=== PATIENT | female | born 1975 | race Hispanic/Latino ===

== ENCOUNTER → 2019-11-29 | Day surgery (SDC) | payer OTHER ==
[~2019-11-29] MED LIST: CEFAZOLIN/SWI 1gm 1 GM/10 ML SYR ONE; CODEINE 30MG/APAP 300MG TAB ONE; CODEINE 30MG/APAP 300MG TAB PO ONE; FENTANYL CITR 100 MCG/2 ML ONE; GLYCOPYRROLATE 0.2 MG/ML SYR ONE; LIDOCAINE 1% W/EPI 1:100,000 MDV 20 ML VIAL ONE; LIDOCAINE 2% MPF 5 ML VIAL ONE; LIDOCAINE JELLY 2%- 5 ML TUBE ONE; MIDAZOLAM HCL 2 MG/2 ML INJ ONE; Mastisol Adhesive Liq ONE; NEOSTIGMINE 1 MG/ML -5 ML ONE; ONDANSETRON 4 MG/2 ML VIAL ONE; OXYMETAZOLINE HCL 0.05% 15ML NAS ONE; ROCURONIUM 50 MG/5 ML VIAL IV ONE; Ringers Lactate 1,000 ML IV ONE; propofoL 200 MG/20 ML VIAL IV ONE
[2019-11-29 10:40] VITALS: O2SAT 100
[2019-11-29] MEDS: MORPHINE 4 MG/ML SYR ONE ×4 (10:50→11:14)
[2019-11-29 12:16] VITALS: BP 135/63; TEMP 97
--- OUTSIDE RECORDS SUMMARY | 2019-11-29 13:25 | XMS REPORT ---
:1975 Author Care Team Providers Name Role Phone YUDELKA CRESPO MD Primary Care Provider [phone] Allergies Code Code System Name Reaction Severity Status Onset NKDA Medications No Medications Reported Notes: No medications reported by patient on 01/30/2018 Problems No Known Problems Procedures Date Name Performed by 11/07/2009 Breast Surgery Information not available Notes: implants 11/07/1996 Tubal Ligation Information not available Lab Results Date Name Specimen Result Interpretation Description Value Range Status Address Urinalysis, Color Color yellow [facility] [place]: [address], [place] Color clear [facility] [place] [place]: [address], [place] Color Glucose negative [facility]: [address], [place] Color Bilirubin negative [facility]: [address] [place] Color Ketones negative [facility]: [address] [place] Color Specific 1.010 [facility] [place]: [address] [place] Color Blood negative [facility]: [address], [place] Color PH 6.5 [facility]: [address], [place] Color Protein negative [facility]: [address], [place] Color 0.2 [facility] [place]: [address], [place] Color Nitrites negative [facility]: [address], [place] Color negative [facility]: [address], [place] Past Encounters 01/30/2018 Adult Health Examination; Screening for Malignant Neoplasm of Cervix; Vitamin D Deficiency Yudelka Crespo MD: [address], [address], [place] [address], Ph. Social History Smoking Status Never Smoker Vaccine List Vaccine Type influenza, injectable, quadrivalent 08/16/2017 Tdap 08/16/2017 Plan of Care Reminders Provider Appointments None recorded. Lab None recorded. Referral None recorded. Procedures None recorded. Surgeries None recorded. Imaging None recorded. Vitals Height Weight BMI Blood Pressure 5 ft 1 in 136 lbs 25.7 kg/m2 114/58 mm[Hg]
--- OUTSIDE RECORDS SUMMARY | 2019-11-29 13:25 | XMS REPORT | Encounter Summary ---
:1975 Author Care Team Providers Name Role Phone Dr. Yudelka Logan Primary Care Provider [phone] Yudelka Logan MD Primary Care Provider [phone] Reason for Visit Annual physical - female Instructions 1. Adult health examination CBC w/ auto diff CMP, serum or plasma TSH, serum or plasma lipid panel, serum urinalysis, dipstick 2. Vitamin D deficiency vitamin D, 25-hydroxy, total, serum 3. Anemia iron + TIBC + ferritin, serum 4. Influenza vaccination given Fluzone Quad (PF) 60 mcg (15 mcg x 4)/0.5 mL IM syringe 5. Screening for malignant neoplasm of breast MAMMO, screening, digital, bilateral Discussion Note: None recorded.Patient educational handouts: No information available. Plan of Care Reminders Provider Appointments None recorded. Lab CBC W/ Auto [facility] Diff 07/25/2019 Practice Laboratory CMP, Serum or [facility] Plasma 07/25/2019 Practice Laboratory TSH, Serum or [facility] Plasma 07/25/2019 Practice Laboratory Lipid Panel, [facility] Serum 07/25/2019 Practice Laboratory Vitamin D, [facility] 25-Hydroxy, Total, 07/25/2019 Practice Laboratory Serum Iron + TIBC + [facility] Ferritin, Serum 07/25/2019 Practice Laboratory Urinalysis, [facility] Dipstick 07/25/2019 Referral None recorded. Procedures None recorded. Surgeries None recorded. Imaging MAMMO, [facility] Breast Screening, Digital, 07/25/2019 Center Scheduling Bilateral Medications No Medications Reported Medications Administered None recorded. Vitals Height Weight BMI Blood Pressure 5 ft 1 in 138 lbs 26.1 kg/m2 108/78 mm[Hg] Lab Results Date Name Specimen Result Interpretation Description Value Range Status Address Urinalysis, Color Color yellow [facility] [place]: [address], [place] Color clear [facility] [place]: [address], [place] Color Glucose negative [facility]: [address], [place] Color Bilirubin negative [facility]: [address], [place] Color Ketones trace [facility]: [address] [facility] [address], [place] Color Specific 1.025 [facility] [place]: [address] [facility] [address], [place] Color Blood negative [facility]: [address] [facility] [address], [place] Color PH 6.0 [facility]: [address] [facility] [address], [place] Color Protein negative [facility]: [address] [facility] [address], [place] Color 0.2 [facility] [place]: [address] [facility] [address], [place] Color Nitrites negative [facility]: [address] [facility] [address], [place] Color negative [facility] [place]: [address] [facility] [address], [place] Allergies Code Code System Name Reaction Severity Status Onset NKDA Problems Name Status Onset Date Source Vitamin D Deficiency Active 01/31/2018 Anemia Active 01/31/2018 Procedures Date Name Performed by 11/07/2009 Breast Surgery Information not available 11/07/1996 Tubal Ligation Information not available 07/25/2019 MAMMO, Screening, Digital, [facility] Scheduling Bilateral [address] [place] [address] (Work Place) Vaccine List Vaccine Type influenza, injectable, quadrivalent 08/16/2017 influenza, injectable, quadrivalent, preservative free 08/03/20180.5 mL Tdap 08/16/2017 Social History Tobacco Smoking Status Never Smoker Past Encounters 07/25/2019 Adult Health Examination; Vitamin D Deficiency; Anemia; Influenza Vaccination Given; Screening for Malignant Neoplasm of Breast Yudelka Logan MD: [address] [facility], [facility] [address], [place] [address], Ph. 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 Urinary symptoms: No hematuria, No incontinence. Vulva: No genital lesion. Vagina: Normal vaginal discharge Breast symptoms: Breast: No breast pain, No breast lump, No nipple discharge Contraception: Current Contraception: Tubal ligation Endocrine symptoms: Sexual complaints: No sexual complaints, No pain during intercourse, Normal libido. Menopausal Symptoms: No menopausal symptoms, Normal vaginal lubrication Psychological symptoms: Psychological symptoms: No depression, No anxiety, No PMDD Preventative measures: Preventive measures: Encourage self breast examination, Encourage regular exercise, Encourage no tobacco use, Encourage regular mammograms starting age 40, Followed with Q3 year pap smear and high risk HPV typing Note: Pt presents tot he clinic for an annual physical-female. Pt c/o no symptoms. Pt is fasting. Review of Systems Comprehensive General Adult ROS Reported By: Patient Constitutional: Constitutional: no night sweats, no significant weight gain, no significant weight loss Eyes: Eyes: no vision change ENMT: Ears: no difficulty hearing. Nose: no nose problems, no sinus problems. Mouth/Throat: no oral abnormalities Cardiovascular: Cardiovascular: no chest pain Respiratory: Respiratory: no cough, no shortness of breath Gastrointestinal: Gastrointestinal: no abdominal pain, no nausea, no vomiting , no constipation, no diarrhea Genitourinary: Genitourinary: no incontinence, no difficulty urinating Musculoskeletal: Musculoskeletal: no arthralgias/joint pain, no back pain, no swelling in the extremities Integumentary: Skin: no abnormal mole Neurologic: Neurologic: no headaches Psychiatric: Psych: no depression, no anxiety Endocrine: Endocrine: no fatigue Physical Exam General Adult Exam (Female) Reported By: Patient Police Aide: Police Aide: present Constitutional: General Appearance: healthy-appearing. Level of Distress: NAD Psychiatric: Insight: good judgement. Mental Status: normal affect. Orientation: to time, to place, to person. Memory: recent memory normal Eyes: Lids and Conjunctivae: non-injected. Pupils: PERRLA. Corneas: grossly intact. EOM: EOMI. Sclerae: non-icteric ENMT: Ears: no lesions on external ear, EACs clear, TMs clear. Hearing: no hearing loss. Nose: no lesions on external nose, nares patent. Lips, Teeth, and Gums: no mouth or lip ulcers. Oropharynx: moist mucous membranes, no erythema Neck: Neck: supple, no masses. Lymph Nodes: no cervical LAD. Thyroid: no enlargement, non-tender Lungs: Respiratory effort: no dyspnea. Auscultation: breath sounds normal, good air movement, CTA except as noted Cardiovascular: Heart Auscultation: RRR, normal S1, normal S2, no murmurs. Neck vessels: no carotid bruits. Pulses including femoral / pedal: normal throughout Breast: Breast Exam: patient deferred exam Abdomen: Bowel Sounds: normal. Inspection and Palpation: soft, non-distended, no tenderness. Liver: non-tender. Spleen: non-tender Female : Female Exam: patient deferred exam Musculoskeletal:: Motor Strength and Tone: normal motor strength. Joints, Bones, and Muscles: normal movement of all extremities. Extremities: no edema Neurologic: Gait and Station: normal gait. Cranial Nerves: grossly intact. Sensation: grossly intact Skin: Inspection and palpation: no lesions
--- OUTSIDE RECORDS SUMMARY | 2019-11-29 13:25 | XMS REPORT | Summary of Care ---
:1975 Author Organization [facility] Address [address] [place] [address] Care Team Providers Name Role Phone ESTEPHANIA Mitchell, HILARIO Unavailable Unavailable KP DRISCOLL M.D. Unavailable Unavailable ESTEPHANIA DO HEATHER, HILARIO Unavailable Unavailable Unavailable Unavailable Unavailable Functional Status Name Dates Details Functional status health issues are not documented Status: Name Dates Details Cognitive status health issues are not documented Status: Problems Name Dates Details Urinary frequency (788.41, R35.0) Status: Active Need for vaccination (V05.9, Z23) Status: Active Patient takes NSAID (non-steroid anti-inflammatory drug) (V58.64, Z79.1) Status: Active Right shoulder pain (719.41, M25.511) Status: Active Tendinitis (726.90, M77.9) Status: Active Overactive bladder (596.51, N32.81) Status: Active Well woman exam with routine gynecological exam (V72.31, Z01.419) Status: Active Breast cancer screening (V76.10, Z12.31) Status: Active Sleep disturbance (780.50, G47.9) Status: Active Hypovitaminosis D (268.9, E55.9) Status: Active Bacterial vaginosis (616.10, N76.0) Status: Active Medications Name Dates Details HydrOXYzine Pamoate 25 MG Oral Capsule TAKE 1 TAB PO AT BEDTIME PRN ANXIETY OR FOR SLEEP Quantity: 30 Refills: 0 KP DRISCOLL M.D. Start : 22-Aug-2017 Active Diclofenac Sodium 1 % Transdermal Gel Apply 2 grams to affected joint up to 4 times a day as needed for pain. Quantity: 1 Refills: 0 BEST D.O., HILARIO Start : 14-Dec-2016 Active 100 GM Tube Famotidine 20 MG Oral Tablet TAKE ONE TABLET BY MOUTH EVERY 12 HOURS Quantity: 60 Refills: 0 BEST D.O., HILARIO Start : 14-Dec-[address] 500 MG Oral Tablet Delayed Release TAKE 1 TABLET TWICE DAILY Quantity: 30 Refills: 0 HILARIO BEST D.O. Start : 14-Dec-2016 Active Oxybutynin Chloride ER 15 MG Oral Tablet Extended Release 24 Hour TAKE 1 TABLET DAILY Quantity: 30 Refills: 0 HILARIO BEST D.O. Start : 14-Dec-2016 Active Allergies and Adverse Reactions Name Dates Details No Known Drug Allergies (Allergy) Status: Active Procedures Procedure Dates Details History of Breast Surgery Enlargement Procedure Completed History of Abdominoplasty Completed History of Corneal LASIK Bilateral Completed History of Tubal Ligation Completed Immunization Name Dates Details Influenza on: 28-Dec-2016 Lot #: [id number] Tdap on: 28-Dec-2016 Lot #: [id number] Fluzone Quadrivalent 0.5 ML Intramuscular Suspension on: 22-Aug-2017 Lot #: [id number] Family History Name Dates Details Family history of essential hypertension (V17.49, Z82.49) Status: Active Family history of hyperlipidemia (V18.19, Z83.49) Status: Active Name Dates Details Family history of cerebrovascular accident (CVA) (V17.1, Z82.3) Status: Active Social History Name Dates Details - Status: Name Dates Details Never smoker Vital Signs Date Test Result Details No Known Vitals to report Results Date Description Value Details Results not documented Plan of Care Name Dates Details Planned Observations Planned Goals not documented Instructions Name Dates Details Instructions not documented Encounters Appointment; HILARIO BEST D.O. On: 14-Dec-2016 10:30 Encounter Diagnosis: Problem not documented Appointment; HILARIO BEST D.O. On: 28-Dec-2016 10:30 Encounter Diagnosis: Problem not documented Appointment; KP DRISCOLL M.D. On: 22-Aug-2017 11:00 Encounter Diagnosis: Problem not documented
--- OUTSIDE RECORDS SUMMARY | 2019-11-29 13:25 | XMS REPORT ---
:1975 Author Organization [facility] Address [address] [place] [address] [address] [place] [address] Care Team Providers Name Role Phone Unavailable Unavailable Unavailable Problems This patient has no known problems. Allergies, Adverse Reactions, Alerts This patient has no known allergies or adverse reactions. Medications This patient has no known medications. Results Test Description Test Time Test Comments Text Results Atomic Results Result Comments MMDOMINGO, 2019-08-29 Diagnostic workup per #[id number] - MAMMO, SCREENING, 12:13:00 radiologist?->Yes Reason MM, DIGITAL, MAMMO, IMPLANT, for Exam:->ROUTINE SCREENING, IMPLANT, BILATERAL, WITH BILATERAL, WITH NAVID, NAVID, INCL CAD INCL CADBILATERAL DIGITAL SCREENING MAMMOGRAM 3D/2D WITH CAD WITH AUGMENTATION: 08/29/2019CLINICAL: Routine screening mammogram. Comparison is made to exams dated: 08/28/2018 mammogram - [facility] and 09/14/2017 mammogram - [facility]. The tissue of both breasts is heterogeneously dense. This may lower the sensitivity of mammography. Tomosynthesis 3D imaging of the breasts was also performed. Current study was also evaluated with a Computer Aided Detection (CAD) system. Benign appearing calcifications are present in both breasts. Bilateral subpectoral silicone implants are present. Implants may obscure breast parenchyma, making mammographic interpretation difficult. No significant masses, calcifications, or other findings are seen in either breast. There has been no significant interval change. IMPRESSION: BENIGNThere is no mammographic evidence of malignancy. A 1 year screening mammogram is recommended. Farzad Thomas M.D. ds/:08/29/2019 12:13:11 Normal [facility] 1-2 Mammogram BI-RADS: 2 Benign , DIGITAL, 2018-09-04 Reason for Exam:->z12.31 Addendum BeginsN#: MAMMO, SCREENING, 10:16:00 [id number] to IMPLANT, Previous Films BILATERAL AMENDMENT: 09/04/2018 INCLUDING CAD Farzad Thomas M.D. Compared with the prior outside mammograms dated 08/31/10 and 09/14/17, there has been no significant interval change. Amended BI-RADS: 2 Benign Addendum EndsN#: [id number] - MM, DIGITAL, MAMMO, SCREENING, IMPLANT, BILATERAL INCLUDING CADBILATERAL DIGITAL SCREENING MAMMOGRAM 3D/2D WITH CAD: 08/28/2018CLINICAL: Routine screening mammogram. No prior films are available for comparison. Lack of availability of prior films for comparison reduces the sensitivity of mammography. The tissue of both breasts is heterogeneously dense. This may lower the sensitivity of mammography. Tomosynthesis 3D imaging of the breasts was also performed. Current study was also evaluated with a Computer Aided Detection (CAD) system. Benign appearing calcifications are present in both breasts. Bilateral subpectoral silicone implants are present. Implants may obscure breast parenchyma, making mammographic interpretation difficult. No significant masses, calcifications, or other findings are seen in either breast. IMPRESSION: BENIGNThere is no mammographic evidence of malignancy. A 1 year screening mammogram is recommended. Comparison with prior exams is most helpful in determining interval change or stability. If priors are submitted an addendum will be issued. Farzad Thomas M.D. ds/:08/30/2018 10:22:23 Normal [facility] 1-2 Mammogram BI-RADS: 2 Benign [id number]
--- NOTE | 2019-11-30 07:54 | OP ---
Surgeon: Jordan Hooks MD Stone Carver: Ochoa. Preoperative Diagnoses: hypo eloy nasolabial folds, and marionette deformity. Postoperative Diagnoses: hypogenia nasolabial folds, and marionette deformity. Procedure Performed: Chin implant and fat transfer from the right abdomen to the nasolabial folds and marionette deformity. Anesthesia: General. Procedure In Detail: After satisfactory induction of general anesthesia, abdomen was prepped first and then the face with DuraPrep and dry sterile drapes applied in the usual manner. A 15 blade was used to make incision in the right lateral abdominal wall. She had previous tummy tuck, e incision was approximately 2 cm cephalad to the incision. She has aspirated of approximately 10 mL of fat. Prior to anesthesia, she was injected with 1% Xylocaine with epinephrine. The fat was allowed to gravitate. The wound was closed with 4-0 Prolene. Attention was then turned to the face. Dry sterile drapes applied in the usual manner. The face had already been injected with 1% Xylocaine with epinephrine to nasolabial folds and marionette deformity. A scalpel was used to make a transverse incision to mucosa and a vertical incision was made, the muscle. Dissection was proceeded down to the periosteum. Periosteal elevator used to elevate the flap off the bone. Sizer was placed, medium, then large. Large was the appropriate size. after the wound was irrigated with antibiotic solution. The wound was then closed with running 4-0 chromic locking stitch. Wound was irrigated with small amount of betadine_. Attention was then turned to the nasolabial deformity, marionette deformity. 18-gauge needle was used to make an incision in the nasolabial fold and the marionette area both sides and then the fat was transferred with 18- gauge needle. 1 mL in the right nasolabial deformity, 1 mL in the left nasolabial deformity, 0.5 mL into each marionette deformities. Total amount injected was 3 mL of fat. All these wounds were then closed with 6-0 Prolene. Patient was transferred to recovery room. ODALYS/BETY Voice ID: [id number] Report ID: [id number] GARRET
== END | disposition home or self-care (01) ==
LOC: OR 07:59
PROVIDERS: ATTEND Specialist
PROC: 0J013ZZ Alteration of Face Subcutaneous Tissue and Fascia, Percutaneous Approach (ICD-10-PCS; principal; 2019-11-29 09:00)
PROC: 0W050JZ Alteration of Lower Jaw with Synthetic Substitute, Open Approach (ICD-10-PCS; 2019-11-29 09:00)
DX: Q18.8 Other specified congenital malformations of face and neck (principal); L98.8 Other specified disorders of the skin and subcutaneous tissue; Z91.012 Allergy to eggs; Z91.010 Allergy to peanuts; Z91.018 Allergy to other foods
CPT/HCPCS: 15773; 21120; 81025; J2704; J2250; J3010; J2710; J0690; J7120 ×2; J2405